=== PATIENT | male | born 1970 | race Caucasian/White ===

== ENCOUNTER 2023-12-29 02:22 | Emergency (ER) | payer BC ==
[2023-12-29 02:47] VITALS: RESP 18; TEMP 97.2
--- NOTE | 2023-12-29 02:52 | ERPHSYRPT ---
- History of Present Illness Time Seen by Provider: 12/29/23 02:51 Historian: patient Exam Limitations: no limitations Patient Subjective Stated Complaint: pt states he has been having pain in his rt back and rt abd Triage Nursing Assessment: pt alert and oriented, answers questions approp. pt ambualtes into room with steady gait noted. respirations nonlabored. skin warm and dry. bowel sounds hypo. abd soft and and nontender to light palpation. Physician History: 53-year-old male with a history of kidney stones presents to our emergency department for evaluation of right side flank pain. Symptoms started yesterday and has progressed into today. Today patient observed dark urine likely blood. No trauma no fever patient feels nauseous at this time. No diarrhea no rash. Symptoms are constant. Symptoms are moderate in intensity. No specific worsening or improving factors. Patient states today's pain is similar to his pain during his last kidney stone. at bedside. They voiced no other complaints or concerns at this time. Portions of this note were created with voice recognition technology. There may be grammatical, spelling, punctuation or sound alike errors Timing/Duration: today Activities at Onset: none Quality: aching Abdominal Pain Onset Location: flank (Right flank) Pain Radiation: other (Pain radiates from right upper flank to groin area) Severity of Pain-Max: moderate Severity of Pain-Current: moderate Modifying Factors: Improves With: nothing Associated Symptoms: nausea Previous symptoms: same symptoms as today Allergies/Adverse Reactions: No Known Drug Allergies Allergy (Verified 12/29/23 02:56) Home Medications: Metformin HCl 500 mg [Glucophage 500 MG] 500 mg PO DAILY 12/29/23 [History] Metoprolol Succinate 100 mg [Toprol Xl 100 MG] 100 mg PO DAILY 12/29/23 [History] Semaglutide [Ozempic] 1 mg SQ WEEKLY 12/29/23 [History] Hx Tetanus, Diphtheria Vaccination/Date Given: No Hx Influenza Vaccination/Date Given: No Hx Pneumococcal Vaccination/Date Given: No Immunizations Up to Date: No Travel Risk - International Travel Have you traveled outside of the country in past 3 weeks: No - Emerging Infectious Disease Are you exhibiting symptoms associated with any current EIDs: No - Review of Systems Constitutional: No Symptoms, No Fever, No Chills Eyes: No Symptoms Ears, Nose, & Throat: No Symptoms Respiratory: No Symptoms, No Cough, No Dyspnea Cardiac: No Symptoms, No Chest Pain, No Edema, No Syncope Abdominal/Gastrointestinal: No Symptoms, No Abdominal Pain, No Nausea, No Vomiting, No Diarrhea Genitourinary Symptoms: No Symptoms, No Dysuria Musculoskeletal: No Symptoms, No Back Pain, No Neck Pain Skin: No Symptoms, No Rash Neurological: No Symptoms, No Dizziness, No Focal Weakness, No Sensory Changes Psychological: No Symptoms Endocrine: No Symptoms Hematologic/Lymphatic: No Symptoms Immunological/Allergic: No Symptoms All Other Systems: Reviewed and Negative - Past Medical History Pertinent Past Medical History: Yes Cardiac History: Hypertension Endocrine Medical History: Diabetes Type II History: Other Other Medical History: kidney stones - Past Surgical History Past Surgical History: No - Social History Smoking Status: Former smoker Exposure to second hand smoke: No Drug Use: none - Social Determinants of Health Will the patient participate in the screening: Declined to provide - Nursing Vital Signs Nursing Vital Signs: Initial Vital Signs Temperature 97.2 F 12/29/23 02:29 Pulse Rate 60 12/29/23 02:29 Respiratory Rate 18 12/29/23 02:29 Blood Pressure 168/92 12/29/23 02:29 O2 Sat by Pulse Oximetry 99 12/29/23 02:29 Pain Scale Pain Intensity 1 - Physical Exam General Appearance: no apparent distress, alert Eye Exam: PERRL/EOMI, eyes nml inspection Ears, Nose, Throat Exam: normal ENT inspection, moist mucous membranes Neck Exam: normal inspection, non-tender, supple, full range of motion Respiratory Exam: normal breath sounds, lungs clear, airway intact, No respiratory distress Cardiovascular Exam: regular rate/rhythm, normal heart sounds Gastrointestinal/Abdomen Exam: soft, tenderness (Tenderness to right flank), No mass Back Exam: normal inspection, normal range of motion, No CVA tenderness, No vertebral tenderness Extremity Exam: normal inspection, normal range of motion, pelvis stable Neurologic Exam: alert, oriented x 3, cooperative, 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 Right 4.8 mm nephrolithiasis. 4 mm cholelithiasis. No cholecystitis. Diverticulosis. Left lung nodule will r equire follow-up in 3 to 6 months) Ordered Tests: Active Orders 24 hr Category Date Time Status IV Insertion STAT Care 12/29/23 02:49 Active ABDOMEN AND PELVIS W/0 CONTRAS [CT] Stat Exams 12/29/23 02:50 Completed CBC W DIFF Stat Lab 12/29/23 02:57 Completed CMP Stat Lab 12/29/23 02:57 Completed CULTURE,URINE Stat Lab 12/29/23 02:57 Received UA W/RFX UR CULTURE Stat Lab 12/29/23 02:57 Completed Medication Summary Generic Name Dose Route Start Last Admin Trade Name Freq PRN Reason Stop Dose Admin Tamsulosin HCl 0.4 mg 12/29/23 10:00 12/29/23 04:48 Tamsulosin Hcl 0.4 Mg Cap PO 01/28/24 09:59 0.4 mg DAILY LISSETH Administration Discontinued Medications Generic Name Dose Route Start Last Admin Trade Name Freq PRN Reason Stop Dose Admin Sodium Chloride 1,000 mls @ 999 mls/hr 12/29/23 02:49 12/29/23 02:59 Sodium Chloride 0.9% 1000 Ml IV 12/29/23 03:49 999 mls/hr .Q1H1M STA Administration Sodium Chloride Confirm 12/29/23 02:57 Sodium Chloride 0.9% 1000 Ml Administered 12/29/23 02:58 Dose 1,000 mls @ ud .ROUTE .STK-MED ONE Ketorolac Tromethamine 30 mg 12/29/23 02:49 12/29/23 02:59 Ketorolac Tromethamine 30 Mg/Ml Inj IV 12/29/23 02:50 30 mg STAT ONE Administration Ketorolac Tromethamine Confirm 12/29/23 02:57 Ketorolac Tromethamine 30 Mg/Ml Inj Administered 12/29/23 02:58 Dose 30 mg .ROUTE .STK-MED ONE Morphine Sulfate 4 mg 12/29/23 03:52 12/29/23 03:56 Morphine Sulfate 4 Mg/Ml Injection IV 12/29/23 03:53 4 mg STAT ONE Administration Morphine Sulfate Confirm 12/29/23 03:54 Morphine Sulfate 4 Mg/Ml Injection Administered 12/29/23 03:55 Dose 4 mg .ROUTE .STK-MED ONE Ondansetron HCl 4 mg 12/29/23 02:54 12/29/23 02:59 Ondansetron Hcl 4 Mg/2 Ml Vial IV 12/29/23 02:55 4 mg STAT ONE Administration Ondansetron HCl Confirm 12/29/23 02:57 Ondansetron Hcl 4 Mg/2 Ml Vial Administered 12/29/23 02:58 Dose 4 mg .ROUTE .STK-MED ONE Lab/Rad Data: Laboratory Result Diagrams 12/29/23 02:57 12/29/23 02:57 Laboratory Results 12/29/23 12/29/23 12/29/23 Range/Units 02:57 02:57 02:57 WBC 8.7 (4.23-9.07) x10^3/uL RBC 4.75 (4.63-6.08) x10^6/uL Hgb 14.9 (13.7-17.5) g/dL Hct 42.3 (40.1-51.0) % MCV 89.1 (79.0-92.2) fL MCH 31.4 (25.7-32.2) pg MCHC 35.2 (32.3-36.5) g/dL RDW 12.6 (11.6-14.4) % Plt Count 169 (163-337) x10^3/uL MPV 9.5 (9.4-12.4) fL Gran % 72.1 H (34.0-67.9) % Immature Gran % (Auto) 0.5 H (0.001-0.429) % Nucleat RBC Rel Count 0.0 (0.00-0.2) % Eos # (Auto) 0.23 (0.04-0.54) x10^3/uL Immature Gran # (Auto) 0.04 H (0.001-0.031) x10^3u/L Absolute Lymphs (auto) 1.43 (1.32-3.57) x10^3/uL Absolute Monos (auto) 0.67 (0.30-0.82) x10^3/uL Absolute Nucleated RBC 0.00 (0.00-0.012) x10^3u/L Lymphocytes % 16.4 L (21.8-53.1) % Monocytes % 7.7 (5.3-12.2) % Eosinophils % 2.6 (0.8-7.0) % Basophils % 0.7 (0.2-1.2) % Absolute Granulocytes 6.28 H (1.78-5.38) x10^3/uL Basophils # 0.06 (0.01-0.08) x10^3/uL Sodium 136 (135-145) mmol/L Potassium 4.2 (3.5-5.1) mmol/L Chloride 100 (98-107) mmol/L Carbon Dioxide 26 (22-30) mmol/L Anion Gap 13.2 (5-15) MEQ/L BUN 18 (9-20) mg/dL Creatinine 1.33 H (0.66-1.25) mg/dL Estimated GFR 64.7 ML/MIN Glucose 165 H (74-106) mg/dL Calcium 9.8 (8.4-10.2) mg/dL Total Bilirubin 1.20 (0.2-1.3) mg/dL AST 43 (17-59) U/L ALT 45 (0-50) U/L Alkaline Phosphatase 123 (38-126) U/L Serum Total Protein 7.8 (6.3-8.2) g/dL Albumin 4.7 (3.5-5.0) g/dL Urine Color [place] A (Yellow) Urine Appearance Turbid A (Clear) Urine pH 5.0 (4.6-8.0) Ur Specific [place] 1.020 (1.005-1.030) Urine Protein 100 A (Negative) Urine Glucose (UA) Negative (Negative) mg/dL Urine Ketones Negative (Negative) Urine Blood Large A (Negative) Urine Nitrite Negative (Negative) Urine Bilirubin Negative (Negative) Urine Urobilinogen 0.2 (0.2) mg/dL Ur Leukocyte Esterase Small A (Negative) U Hyaline Cast (Auto) NONE SEEN (0-2) /LPF Urine Microscopic RBC >100 A (0-5) /HPF Urine Microscopic WBC 3-5 (0-5) /HPF Ur Epithelial Cells None Seen (None Seen) /HPF Urine Bacteria None Seen (None Seen) /HPF Urine Culture Reflexed YES (NO) - Progress Progress: improved Progress Note: 53-year-old male presents to the emergency department for evaluation of right- sided flank pain. Physical exam reveals some tenderness to palpation. Otherwise unremarkable. CT abdomen pelvis reveals a 3.2 mm obstructive stone causing hydronephrosis and hydroureter. Incidental right nephrolithiasis. Stone measuring 4.8 mm. 4 mm gallbladder cholelithiasis. No cholecystitis. Diverticulosis and a lung nodule that will require follow-up. Urinalysis is negative for urinary tract infection there is some hematuria as expected in a kidney stone. Patient's pain is well-controlled at this time. Patient is now requesting discharge. We attempted to contact urology for follow-up and to discuss disposition however patient is wanting to go home at this time. Patient will follow-up with urology as an outpatient. Slightly elevated creatinine. Vital stable. Patient received a dose of Flomax in our ED. A prescription for Flomax, Toradol and [place] provided. Patient agrees to follow-up with his primary care doctor within 48 hours for reevaluation. He voices no other complaints or concerns at this time. Portions of this note were created with voice recognition technology. There may be grammatical, spelling, punctuation or sound alike errors Complexity problem addressed is moderate acute complicated. No critical care time. Complexity of data reviewed and analyzed is moderate. Test ordered chest reviewed results analyzed and correlated clinically with history and physical exam. Risk of complication and or risk of morbidity/mortality patient management is high. Patient received morphine in our ED. Patient will be disch arged home with a prescription for [place]. Vital stable. Time spent to discharge patient is approximately 15 minutes. Plan of care established for shared decision making. No social determinants of health present impede follow- up. Portions of this note were created with voice recognition technology. There may be grammatical, spelling, punctuation or sound alike errors 12/29/23 05:31 Counseled pt/family regarding: lab results, diagnosis, need for follow-up, rad results - Departure Departure Disposition: Home Clinical Impression: Ureterolithiasis, Nephrolithiasis, Hydroureter, Hydronephrosis, Hematuria, Cholelithiasis, Diverticulosis, Lung nodule Condition: Stable Critical Care Time: No Referrals: OSIRIS ZHAO [Primary Care Provider] - Follow up/PCP as directed Additional Instructions: You have a left lung nodule that will require CT follow-up in 3 to 6 months. Discharge/Care Plan JOSE HAMMER was seen on 12/29/23 in the Emergency Room. The patient was counseled regarding Diagnosis,Lab results, Imaging studies, need for follow up and when to return to the Emergency Room. Prescriptions given: Discharge Note I have spoken with the patient and/or caregivers. I have explained the patient's condition, diagnosis and treatment plan based on the information available to me at this time. I have answered the patient's and/or caregiver's questions and addressed any concerns. The patient and/or caregivers have as good understanding of the patient's diagnosis, condition and treatment plan as can be expected at this point. The vital signs have been stable. The patient's condition is stable and appropriate for discharge from the emergency department. The patient will pursue further outpatient evaluation with the primary care physician or other designated or consulting physician as outlined in the discharge instructions. The patient and/or caregivers are agreeable to this plan of care and follow-up instructions have been explained in detail. The patient and/or caregivers have received these instruction. The patient/and or caregivers are aware that any significant change in condition or worsening of symptoms should prompt an immediate return to this or the closest emergency department or call 911. Prescriptions: Hydrocodone/APAP 5/325 [[place] 5/325 mg] 1 each PO Q6H PRN PRN #10 tablet MDD 4 PRN Reason: Pain Ondansetron ODT 4 MG [Zofran Odt 4 mg] 4 mg PO Q6H PRN PRN #10 tablet PRN Reason: Vomiting Ketorolac Trometh 10 mg Tab [TORAdol 10 MG TABLET] 10 mg PO TID 5 Days #15 tablet
[2023-12-29] MEDS ORDERED: Sodium Chloride 0.9% 1000 ML 1,000 ML ONE (02:57)
[2023-12-29] MEDS ORDERED: TORAdol 30 mg Injection ONE (02:57)
[2023-12-29] MEDS ORDERED: Zofran 4 MG/2 ML VIAL ONE (02:57)
[2023-12-29] MEDS: TORAdol 30 mg Injection IV ONE (02:59)
[2023-12-29] MEDS: Zofran 4 MG/2 ML VIAL IV ONE (02:59)
[2023-12-29] MEDS: Sodium Chloride 0.9% 1000 ML 1,000 ML IV STA (02:59)
[2023-12-29 03:01] LABS: Absolute Neutrophil Ct (ANC) 6.28 x10^3/uL (1.78-5.38); BASOPHIL % 0.7 % (0.2-1.2); Basophil (Absolute #) 0.06 x10^3/uL (0.01-0.08); Eosinophil % 2.6 % (0.8-7.0); Eosinophil (Absolute #) 0.23 x10^3/uL (0.04-0.54); Hematocrit 42.3 % (40.1-51.0); Hemoglobin 14.9 g/dL (13.7-17.5); IMMATURE GRAN # 0.04 x10^3u/L (0.001-0.031); IMMATURE GRAN % 0.5 % (0.001-0.429); Lymphocyte (Absolute #) 1.43 x10^3/uL (1.32-3.57); Lymphocytes % 16.4 % (21.8-53.1); Mean Cell Volume 89.1 fL (79.0-92.2); Mean Corpuscular Hemoglobin 31.4 pg (25.7-32.2); Mean Corpuscular Hgb Concent. 35.2 g/dL (32.3-36.5); Mean Platelet Volume 9.5 fL (9.4-12.4); Monocyte (Absolute #) 0.67 x10^3/uL (0.30-0.82); Monocytes % 7.7 % (5.3-12.2); Neutrophil % 72.1 % (34.0-67.9); Platelet Count 169 x10^3/uL (163-337); Red Blood Count 4.75 x10^6/uL (4.63-6.08); Red Cell Distribution Width 12.6 % (11.6-14.4); White Blood Count 8.7 x10^3/uL (4.23-9.07)
[2023-12-29 03:07] LABS: ALBUMIN 4.7 g/dL (3.5-5.0); ANION GAP 13.2 MEQ/L (5-15); BILIRUBIN,TOTAL 1.2 mg/dL (0.2-1.3); Calcium 9.8 mg/dL (8.4-10.2); Creatinine 1 1.33 mg/dL (0.66-1.25); EST GLOMERULAR FILTRATION RATE 64.7 ML/MIN; Potassium 4.2 mmol/L (3.5-5.1); Total Protein 7.8 g/dL (6.3-8.2)
[2023-12-29 03:09] LABS: Appearance Turbid (Clear); Bacteria None Seen /HPF (None Seen); Bilirubin Negative (Negative); Blood Large (Negative); Epithelial Cells None Seen /HPF (None Seen); Glucose, Urine Negative (Negative); Hyaline Casts NONE SEEN /LPF (0-2); Ketones Negative (Negative); Leukocyte Esterase Small (Negative); Nitrite Negative (Negative); Protein,Urine Dip 100 (Negative); RBC >100 /HPF (0-5); Urobilinogen 0.2 mg/dL (0.2)
[2023-12-29 03:11] LABS: ADD URINE CULTURE? YES (NO)
[2023-12-29] MEDS ORDERED: MORPHINE SULFATE 4 MG INJ ONE (03:54)
[2023-12-29] MEDS: MORPHINE SULFATE 4 MG INJ IV ONE (03:56)
--- NOTE | 2023-12-29 04:20 | XRAY ---
CLINICAL HISTORY: pain COMPARISON: None. TECHNIQUE: A CT scan of the abdomen and pelvis was performed without IV contrast. Coronal and sagittal reconstructive images were also obtained. One of the following dose reduction techniques was utilized for this exam.Automated exposure control, adjustment of the mA and/or kV according to patient size, and use of iterative reconstruction. FINDINGS: The kidneys are normal in size and shape. No left renal calculi or hydronephrosis. No renal masses bilaterally. A right ureteric middle third obstructing calculus measuring 3.2 mm (863HU) with resulting mild upstream hydroureter and hydronephrosis. Stranding or perirenal and periureteric fat planes. Right renal lower calyceal non-obstructing calculus measuring 4.8 mm (588HU). No left uretertic calculi. The urinary bladder was underfilled. No evident calculi or masses. The gallbladder harbors a small calculus of about 4 mm. No pericholecystic collection. Few colonic diverticulae. No evidence of diverticulitis The liver is normal in size. No focal or diffuse parenchymal abnormality. The intrahepatic biliary radicals and the bile ducts are normal. The spleen, pancreas, and adrenal glands are unremarkable. The visualized small bowel loops are unremarkable. No CT evidence of acute appendicitis. The prostate was unremarkable. The rectosigmoid colon is unremarkable. No evidence of abdominopelvic lymphadenopathy. No ascites. A scan through the lower chest reveals a left lung inferior lingular segment nodule measuring 7 mm. Right pleural basal (costal and diaphragmatic leaflets) curvilinear calcified plaques. Degenerative changes of the scanned spine. IMPRESSION: 1. A right ureteric middle third obstructing calculus measuring 3.2 mm (863HU) with resulting mild upstream hydroureter and hydronephrosis. Stranding or perirenal and periureteric fat planes. 2. Right renal lower calyceal non-obstructing calculus measuring 4.8 mm (588HU). 3. Cholelithiasis. No CT evidence of cholecystitis. 4. Few colonic diverticulae. No evidence of diverticulitis 5. A left lung inferior lingular segment nodule measuring 7 mm. According to the Fleischner Society pulmonary nodule recommendations for low-risk patients CT at 6-12 months, then consider CT at 18-24 months and for high-risk patients CT at 6-12 months, then CT at 18-24 months is advised. 6. Right pleural basal (costal and diaphragmatic leaflets) curvilinear calcified plaques. Likely a sequel of old granuloma/old infection. Electronically Signed by: Armand Munguia MD. (12/29/2023 04:12:44 EDT) ADDENDUM: 12/29/2023 04:16:[address] [facility] ER was called at [phone] at 3:14 AM [employer]IST, 12/29/[address] Angelo was informed about the presence of medical findings. Electronically Signed by: Armand Munguia MD. (12/29/2023 04:16:11 EDT)
[2023-12-29] MEDS ORDERED: Flomax 0.4 MG ONE (04:47)
[2023-12-29] MEDS: Flomax 0.4 MG PO SCH (04:48)
[2023-12-29 05:39] VITALS: BP 135/77; PULSE 68; O2SAT 97
== END 2023-12-29 05:49 | disposition home or self-care (01) ==
LOC: ED 02:22
DX: N13.2 Hydronephrosis with renal and ureteral calculous obstruction (principal); N13.4 Hydroureter; R31.9 Hematuria, unspecified; K80.20 Calculus of gallbladder without cholecystitis without obstruction; K57.90 Diverticulosis of intestine, part unspecified, without perforation or abscess without bleeding; R91.1 Solitary pulmonary nodule; R10.9 Unspecified abdominal pain; R11.0 Nausea; I10 Essential (primary) hypertension; E11.9 Type 2 diabetes mellitus without complications; Z79.84 Long term (current) use of oral hypoglycemic drugs; Z79.85 Long-term (current) use of injectable non-insulin antidiabetic drugs; Z79.891 Long term (current) use of opiate analgesic; Z79.899 Other long term (current) drug therapy; Z87.442 Personal history of urinary calculi
CPT/HCPCS: 36000; 36415; 74176; 80053; 81001; 85025; 87086; 96374; 96375; 99284; J1885; J2270; J2405; A9270-GY

== ENCOUNTER 2024-01-02 17:46 | Emergency (ER) | payer BC ==
--- NOTE | 2024-01-02 18:01 | ERPHSYRPT ---
- History of Present Illness Time Seen by Provider: 01/02/24 18:01 Historian: patient, family Exam Limitations: no limitations Physician History: This is a 53-year-old white male patient who began having flank pain 12/28/2023. He presented to our emergency department on 12/29/2023 and underwent a full workup and was found to have a right 3.2 mm ureteral stone with evidence of hydronephrosis and hydroureter. Patient was discharged to home with prescription of Toradol, [place] and Flomax. The patient still has Toradol and Flomax at home but is out of his [place] and his right flank pain became worse today. Patient has a history of diabetes and hypertension. Patient was also found to have a renal stone of 4 mm in diameter. Patient states he is not worse. He states he is not wanting another full workup. He is only wanting pain relief now and a refill on his [place] 5/325 medication. His significant other verifies this. Together, we all agree that this is what we will do today. Patient has an appointment to see his primary care provider next week to be referred to urologist. He states he is going to contact his primary care provider to move the appointment up to this week. Timing/Duration: today Activities at Onset: none Quality: sharpness (Flank) Abdominal Pain Onset Location: flank Pain Radiation: no radiation Severity of Pain-Max: moderate Severity of Pain-Current: moderate Modifying Factors: Improves With: nothing Associated Symptoms: denies symptoms Previous symptoms: same symptoms as today, recently seen, recently treated Allergies/Adverse Reactions: No Known Drug Allergies Allergy (Verified 01/02/24 17:58) Home Medications: Metformin HCl 500 mg [Glucophage 500 MG] 500 mg PO DAILY 12/29/23 [History] Metoprolol Succinate 100 mg [Toprol Xl 100 MG] 100 mg PO DAILY 12/29/23 [History] Semaglutide [Ozempic] 1 mg SQ WEEKLY 12/29/23 [History] Hx Tetanus, Diphtheria Vaccination/Date Given: No Hx Influenza Vaccination/Date Given: No Hx Pneumococcal Vaccination/Date Given: No Travel Risk - International Travel Have you traveled outside of the country in past 3 weeks: No - Emerging Infectious Disease Are you exhibiting symptoms associated with any current EIDs: No - Review of Systems Constitutional: No Symptoms Eyes: No Symptoms Ears, Nose, & Throat: No Symptoms Respiratory: No Symptoms Cardiac: No Symptoms Abdominal/Gastrointestinal: No Symptoms Genitourinary Symptoms: Flank Pain (Right flank pain of same intensity. Symptoms not worse. Patient out of his medication ([place])) Musculoskeletal: No Symptoms Skin: No Symptoms Neurological: No Symptoms Psychological: No Symptoms Endocrine: No Symptoms Hematologic/Lymphatic: No Symptoms Immunological/Allergic: No Symptoms All Other Systems: Reviewed and Negative - Past Medical History Pertinent Past Medical History: Yes Cardiac History: Hypertension Endocrine Medical History: Diabetes Type II History: Other Other Medical History: kidney stones - Past Surgical History Past Surgical History: No - Social History Smoking Status: Former smoker Exposure to second hand smoke: No Drug Use: none - Social Determinants of Health Will the patient participate in the screening: Declined to provide - Nursing Vital Signs Nursing Vital Signs: Initial Vital Signs Temperature 98 F 01/02/24 17:59 Pulse Rate 66 01/02/24 17:59 Respiratory Rate 17 01/02/24 17:59 Blood Pressure 157/81 01/02/24 17:59 O2 Sat by Pulse Oximetry 98 01/02/24 17:59 Pain Scale Pain Intensity 5 - Physical Exam General Appearance: no apparent distress, alert, anxiety Eye Exam: PERRL/EOMI, eyes nml inspection Ears, Nose, Throat Exam: normal ENT inspection, moist mucous membranes Neck Exam: normal inspection, non-tender, supple, full range of motion Respiratory Exam: normal breath sounds, lungs clear, airway intact, No chest tenderness, No respiratory distress Cardiovascular Exam: regular rate/rhythm, normal heart sounds, normal peripheral pulses Gastrointestinal/Abdomen Exam: soft, normal bowel sounds, No tenderness Rectal Exam: not done Back Exam: normal inspection, normal range of motion, No CVA tenderness, No vertebral tenderness Extremity Exam: normal inspection, normal range of motion, pelvis stable Neurologic Exam: alert, oriented x 3, cooperative, 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, nml cerebellar function, nml station & gait, sensation nml Skin Exam: normal color, warm, dry Lymphatic Exam: No adenopathy SpO2 Interpretation: normal O2 Delivery: Room Air - Course Nursing assessment & vital signs reviewed: Yes - Progress Progress: improved, pain not gone completely, re-examined Progress Note: 01/02/24 18:43 My medical decision making and the assignment of low complexity to this patient's workup is based on review of the patient's past medical history, review of patient's medication list, review of patient drug allergy list, review the patient's history present illness and physical findings on examination. It is also based on what the patient and his significant other have mentioned they would like to do. I think the option of refilling his [place] 5/325 medication today and provide him with the emergency department injectable medication of Toradol and Dilaudid one-time and oral Zofran 1 time is reasonable. The patient and his significant other state that he is just out of the [place] 5/325 and will be seeing his primary care provider this week. I did offer the patient a repeat workup. He declines. Counseled pt/family regarding: diagnosis, need for follow-up Medical Desision Making - Independent Historian Additional History obtained from: Spouse - Diagnostic Testing Diagnostic test were ordered, analyzed, and reviewed by me: No - Risk of complications The pt has a mod risk of morbidity or mortality based on: Need for prescription drug management - Departure Departure Disposition: Home Clinical Impression: Right flank pain Condition: Stable Critical Care Time: No Referrals: OSIRIS ZHAO [Primary Care Provider] - Follow up/PCP as directed Additional Instructions: Drink plenty of fluids. Take your medications as prescribed. Once you have completed your Toradol medication, you may then use ibuprofen 600 mg orally 3 times a day with food. Call your primary care provider tomorrow, 01/03/2024 to make arrangements for follow-up appointment to be seen in the next 2 to 3 days and for referral to a urologist. Prescriptions: Hydrocodone/APAP 5/325 [[place] 5/325 mg] 1 each PO Q8H PRN PRN #10 tablet MDD 3 PRN Reason: Pain
[2024-01-02 18:07] VITALS: TEMP 98
[2024-01-02] MEDS ORDERED: TORAdol 30 mg Injection ONE (18:49)
[2024-01-02] MEDS ORDERED: Hydromorphone 1 mg/ml Injection ONE (18:49)
[2024-01-02] MEDS ORDERED: ZOFRAN ODT 4 MG ONE (18:50)
[2024-01-02] MEDS: TORAdol 30 mg Injection IM ONE (18:50)
[2024-01-02] MEDS: Hydromorphone 1 mg/ml Injection IM ONE (18:50)
[2024-01-02] MEDS: ZOFRAN ODT 4 MG PO ONE (18:51)
[2024-01-02 19:04] VITALS: BP 131/78; PULSE 76; RESP 18; O2SAT 100
== END 2024-01-02 19:04 | disposition home or self-care (01) ==
LOC: ED 17:46
DX: R10.9 Unspecified abdominal pain (principal); E11.9 Type 2 diabetes mellitus without complications; I10 Essential (primary) hypertension; Z79.891 Long term (current) use of opiate analgesic; Z79.84 Long term (current) use of oral hypoglycemic drugs; Z79.85 Long-term (current) use of injectable non-insulin antidiabetic drugs; Z79.899 Other long term (current) drug therapy
CPT/HCPCS: 96372; 99283; J1170; J1885; Q0162